=== PATIENT | female | born 1990 | race Caucasian/White ===

== ENCOUNTER → 2018-03-08 | Outpatient (CLI) | payer OTHER ==
[~2018-03-08] MED LIST: AMITRIPTYLINE H10 M3 PO; ATIVAN0.5 MG PO; CELEXA20 MG PO; EXCEDRIN CAPLE1 EACH PO; FIORICET 50-301 EACH PO; IBUPROFEN 800800 M1 PO; IMITREX 25 MG T25 M1 PO; ZOFRAN4 MG PO
[2018-03-08 12:46] LABS: ABSOLUTE BASOPHILS 0.1 thou/uL (0.0-0.2); ABSOLUTE LYMPHOCYTES 1.4 thou/uL (0.8-5.3); ABSOLUTE MONOCYTES 0.4 thou/uL (0.0-1.2); ABSOLUTE NEUTROPHILS 4.7 thou/uL (1.6-8.1); BASOPHILS 0.9 %; EOSINOPHILS 0.6 %; HEMATOCRIT 42.1 % (37.0-47.0); HEMOGLOBIN 14.3 gm/dL (12.0-15.0); LYMPHOCYTES 20.9 %; MCH 31.7 pg (26.0-34.0); MCHC 34.1 g/dL (28.0-37.0); MCV 92.9 fL (80.0-100.0); MONOCYTES 5.4 %; MPV 7.2 fl. (7.2-11.1); NUCLEATED RBCS 0 /100WBC; PLATELET COUNT* 303 thou/uL (150-400); POLYS 72.2 %; RBC 4.53 mil/uL (4.20-5.00); RDW-CV 12.7 % (10.5-14.5); WBC 6.5 thou/uL (4.0-11.0)
[2018-03-08 12:57] LABS: ALBUMIN 3.5 g/dL (3.4-5.0); CALCIUM 8.6 mg/dL (8.5-10.1); CREATININE 0.9 mg/dL (0.6-1.3); POTASSIUM 3.9 mmol/L (3.5-5.1); TOTAL BILIRUBIN 0.5 mg/dL (<0.1-1.0); TOTAL PROTEIN 6.4 g/dL (6.4-8.2)
== END ==
LOC: M.LAB 12:30
PROVIDERS: Family Medicine
DX: R51 Headache (principal); R79.89 Other specified abnormal findings of blood chemistry

== ENCOUNTER → 2018-05-28 | Outpatient (CLI) | payer OTHER ==
[2018-05-30 13:08] LABS: ANA INTERPRETATION Negative (Negative)
== END ==
LOC: M.LAB 13:28
PROVIDERS: Family Medicine
DX: F32.9 Major depressive disorder, single episode, unspecified (principal); G47.9 Sleep disorder, unspecified; R51 Headache; R47.9 Unspecified speech disturbances; R00.2 Palpitations

== ENCOUNTER → 2018-06-01 | Outpatient (CLI) | payer OTHER | LOC: M.MRI 06:57 | DX: R51 Headache (principal) ==

== ENCOUNTER → 2018-07-28 | Outpatient (CLI) | payer OTHER | LOC: M.LAB 12:51 | PROVIDERS: Family Medicine | DX: F41.9 Anxiety disorder, unspecified (principal); F51.01 Primary insomnia ==

== ENCOUNTER → 2018-11-13 | Outpatient (CLI) | payer OTHER ==
[2018-11-13 10:36] LABS: HEMATOCRIT 42.1 % (37.0-47.0); HEMOGLOBIN 14.6 gm/dL (12.0-15.0); MCHC 34.6 g/dL (28.0-37.0); MCV 92.3 fL (80.0-100.0); MPV 6.9 fl. (7.2-11.1); RBC 4.56 mil/uL (4.20-5.00); RDW-CV 12.9 % (10.5-14.5); WBC 5.7 thou/uL (4.0-11.0)
[2018-11-13 10:49] LABS: ALBUMIN 3.3 g/dL (3.4-5.0); ALKALINE PHOSPHATASE 89 U/L (46-116); ANION GAP 8 mmol/L (7-16); BUN 12 mg/dL (7-18); CALCIUM 8.5 mg/dL (8.5-10.1); CHLORIDE 104 mmol/L (98-107); CHOLESTEROL 190 mg/dL (<200); CO2 27 mmol/L (21-32); CREATININE 0.9 mg/dL (0.6-1.3); GLUCOSE 98 mg/dL (70-99); HDL CHOLESTEROL 55 mg/dL (>40); LDL CHOLESTEROL 101 mg/dL (<100); POTASSIUM 3.8 mmol/L (3.5-5.1); SGOT 21 U/L (15-37); SGPT 54 U/L (30-65); SODIUM 139 mmol/L (136-145); TC:HDL 3.5 Ratio (Not establshd); TOTAL BILIRUBIN 0.3 mg/dL (<0.1-1.0); TOTAL PROTEIN 6.6 g/dL (6.4-8.2); TRIGLYCERIDE 172 mg/dL (<150); VLDL 34 mg/dL (<40)
[2018-11-13 10:50] LABS: SERUM ASSESSMENT Clear
== END ==
LOC: M.LAB 10:19
PROVIDERS: Family Medicine
DX: R00.0 Tachycardia, unspecified (principal); M79.10 Myalgia, unspecified site; R63.5 Abnormal weight gain

== ENCOUNTER → 2018-11-16 | Outpatient (CLI) | payer OTHER | LOC: M.NUC 07:16 | DX: R11.2 Nausea with vomiting, unspecified (principal); R10.13 Epigastric pain ==

== ENCOUNTER → 2018-11-21 | Outpatient (CLI) | payer OTHER | LOC: M.ULTRA 07:16 | DX: R10.9 Unspecified abdominal pain (principal) ==

== ENCOUNTER → 2018-12-01 | Outpatient (CLI) | payer OTHER | LOC: M.LAB 16:26 | DX: R60.9 Edema, unspecified (principal) ==

== ENCOUNTER 2018-12-16 20:06 | Emergency (ER) | payer OTHER ==
[~2018-12-16] VITALS: Ht 165.1 cm; Wt 75.3 kg
[2018-12-16] MEDS ORDERED: PROZAC10 MG PO (20:34)
[2018-12-16] MEDS ORDERED: MECLIZINE HCL25 M1 PO (21:31)
[2018-12-16 21:46] VITALS: BP 113/84
== END 2018-12-16 21:46 | disposition home or self-care (01) ==
LOC: M.ERS 20:06
DX: R42 Dizziness and giddiness (principal); G43.909 Migraine, unspecified, not intractable, without status migrainosus; Z98.890 Other specified postprocedural states; Z86.73 Personal history of transient ischemic attack (TIA), and cerebral infarction without residual deficits; Z88.8 Allergy status to other drugs, medicaments and biological substances

== ENCOUNTER → 2019-01-05 | Outpatient (CLI) | payer OTHER ==
[~2019-01-05] MED LIST changes: +MECLIZINE HCL25 M1 PO; +PROZAC10 MG PO
== END ==
LOC: M.RAD 07:43
DX: K44.9 Diaphragmatic hernia without obstruction or gangrene (principal)

== ENCOUNTER → 2019-01-24 | Outpatient (CLI) | payer OTHER ==
--- NOTE | 2019-01-24 16:25 | EXE ---
[place] [address] STRESS ECHOCARDIOGRAM Name: CARA BROWN Room: [facility]#: [id number] Admission: 01/24/19 Attend Phys: Rosamaria Rosenbaum DO Discharge: Date of : 89 Date of Service: 01/24/19 1624 Report #: [id number] THIS REPORT FOR: //name// APPROVED REPORT Study performed: 01/24/2019 15:06:37 Exam: Stress Echocardiogram Indication: Chest pain , Dyspnea Patient Location: Out-Patient Stress Nurse: Machelle Luz RN Supervising Physician: Valdo Burrell MD Ht: 5 ft 5 in HR: 90 bpm BP: 103/75 mmHg Medical History Cardiac Risk Factors: Tobacco History (Former), FHX of CAD Procedure The patient underwent an Exercise Stress Test using the Patric Protocol. Blood pressure, heart rate, and EKG were monitored. An Echocardiogram was performed by internetworking technician in four stages in quad fashion. At peak stress, four selected images were obtained and placed side by side with resting images for comparison. Stress Test Details Stress Test: Exercise stress testing was performed using a Patric protocol. HR Resting HR: 90 bpm Max Heart Rate (APMHR): 193 bpm Max HR Achieved: 176 bpm Target HR (85% APMHR): 164 bpm % of APMHR: 91 Recovery HR: 115 bpm HR response to stress: Normal HR response to stress BP Resting BP: 103/75 mmHg Max BP: 149/55 mmHg Recovery BP: 121/65 mmHg BP response to stress: Normal blood pressure response to stress. ECG Resting ECG: [place] [address] STRESS ECHOCARDIOGRAM Name: CARA BROWN Room: [facility]#: [id number] Admission: 01/24/19 Attend Phys: Rosamaria Rosenbaum DO Discharge: Date of : 89 Date of Service: 01/24/19 1624 Report #: [id number] Stress ECG: nsr ST Change: none Arrhythmia: none Recovery ECG: nsr Recovery ST Change: none Clinical Reason for Termination: Completed protocol Stress Symptoms: nsr Exercise duration: 9 min 52 sec Highest Stage Achieved: Stage 4: 4.2 mph at 16% grade. Exercise capacity: 11.57 METs Stress ECG Conclusion nsr normal ecg Pre-Stress Echo The resting Echocardiogram showed normal left ventricular contractility with an estimated Ejection Fraction of about >55%. Post-Stress Echo LV chamber size decreases, LV ejection fraction increases, no new wall motion abnormalities are seen. Conclusion Clinical Response: Non-ischemic Exercise Capacity: Superior Stress ECG Response: Non-ischemic Stress Echo Images: Non-ischemic Negative stress echo for ischemia or infarct Other Information Study Quality: Good <Conclusion> Negative stress echo for ischemia or infarct <ELECTRONICALLY SIGNED> By: Valdo Burrell MD, FACC 01/24/19 1624 1624 162 Valdo Burrell MD, FACC /INF
== END ==
LOC: M.RAD 13:52 → M.CRD 15:00
DX: R07.9 Chest pain, unspecified (principal); R06.00 Dyspnea, unspecified; R60.9 Edema, unspecified; R00.0 Tachycardia, unspecified; K21.9 Gastro-esophageal reflux disease without esophagitis

== ENCOUNTER → 2019-03-02 | Outpatient (CLI) | payer OTHER | LOC: M.ULTRA 08:00 | DX: N63.10 Unspecified lump in the right breast, unspecified quadrant (principal); Z88.8 Allergy status to other drugs, medicaments and biological substances ==

== ENCOUNTER → 2019-03-06 | Outpatient (CLI) | payer OTHER | LOC: M.LAB 20:11 | DX: R00.0 Tachycardia, unspecified (principal); R45.4 Irritability and anger; G47.9 Sleep disorder, unspecified; R63.5 Abnormal weight gain ==

== ENCOUNTER → 2019-03-23 | Outpatient (CLI) | payer OTHER ==
[~2019-03-23] MED LIST changes: +COMPAZINE10 MG PO; +PROPRANOLOL 8080 MG PO; +ZOFRAN ODT4 MG PO
== END ==
LOC: M.SLEEPLAB 13:49
DX: G47.9 Sleep disorder, unspecified (principal); R63.5 Abnormal weight gain; R45.4 Irritability and anger

== ENCOUNTER 2019-03-25 21:34 | Emergency (ER) | payer OTHER ==
[~2019-03-25] VITALS: Ht 165.1 cm; Wt 77.1 kg
[~2019-03-25 21:34] MED LIST changes: -COMPAZINE10 MG PO; -PROPRANOLOL 8080 MG PO; -ZOFRAN ODT4 MG PO
[2019-03-25] MEDS ORDERED: PROPRANOLOL 8080 MG PO (21:57)
[2019-03-25 21:59] LABS: URINE BILIRUBIN NEGATIVE (Negative); URINE BLOOD NEGATIVE (Negative); URINE CLARITY CLEAR; URINE COLOR YELLOW; URINE GLUCOSE-RANDOM NEGATIVE (Negative); URINE KETONES NEGATIVE (Negative); URINE LEUKOCYTES-REFLEX NEGATIVE (Negative); URINE NITRITE-REFLEX NEGATIVE (Negative); URINE PROTEIN NEGATIVE (Negative); URINE SPECIFIC GRAVITY 1.015 (1.005-1.030); URINE UROBILINOGEN 0.2 E.U./dl (0.2-1.0)
[2019-03-25 22:06] LABS: ABSOLUTE BASOPHILS 0.1 thou/uL (0.0-0.2); ABSOLUTE EOSINOPHILS 0.1 thou/uL (0.0-0.7); ABSOLUTE LYMPHOCYTES 2.4 thou/uL (0.8-5.3); ABSOLUTE MONOCYTES 0.6 thou/uL (0.0-1.2); ABSOLUTE NEUTROPHILS 4.3 thou/uL (1.6-8.1); BASOPHILS 0.9 %; EOSINOPHILS 1.2 %; HEMATOCRIT 42.1 % (37.0-47.0); HEMOGLOBIN 14.4 gm/dL (12.0-15.0); LYMPHOCYTES 32.7 %; MCH 31.7 pg (26.0-34.0); MCHC 34.2 g/dL (28.0-37.0); MCV 92.5 fL (80.0-100.0); MONOCYTES 7.5 %; MPV 6.9 fl. (7.2-11.1); NUCLEATED RBCS 0 /100WBC; PLATELET COUNT* 344 thou/uL (150-400); POLYS 57.7 %; RBC 4.56 mil/uL (4.20-5.00); RDW-CV 12.4 % (10.5-14.5); WBC 7.5 thou/uL (4.0-11.0)
[2019-03-25 22:14] LABS: CALCIUM 8.2 mg/dL (8.5-10.1); CREATININE 0.7 mg/dL (0.6-1.3); POTASSIUM 3.4 mmol/L (3.5-5.1)
[2019-03-25 22:29] LABS: ALBUMIN 3.2 g/dL (3.4-5.0); TOTAL BILIRUBIN 0.3 mg/dL (<0.1-1.0); TOTAL PROTEIN 5.7 g/dL (6.4-8.2)
[2019-03-26] MEDS ORDERED: ZOFRAN ODT4 MG PO (00:25)
[2019-03-26] MEDS ORDERED: COMPAZINE10 MG PO (00:25)
[2019-03-26 00:46] VITALS: BP 108/62
== END 2019-03-26 00:46 | disposition home or self-care (01) ==
LOC: M.ERS 21:34
PROVIDERS: Emergency Medicine
DX: R11.2 Nausea with vomiting, unspecified (principal); R10.13 Epigastric pain; R10.31 Right lower quadrant pain; R10.32 Left lower quadrant pain; G43.909 Migraine, unspecified, not intractable, without status migrainosus; Z98.890 Other specified postprocedural states; Z86.73 Personal history of transient ischemic attack (TIA), and cerebral infarction without residual deficits; Z96.22 Myringotomy tube(s) status; Z88.8 Allergy status to other drugs, medicaments and biological substances